=== PATIENT | male | born 1975 | race Caucasian/White ===

== ENCOUNTER 2023-05-27 23:34 | Inpatient (IN) | payer OTHER, SELFPAY ==
[2023-05-27] VITALS (8 sets, daily range): BP systolic 129–145; BP diastolic 62–84; BMI 25.0
[2023-05-27 17:04] LABS: Glucose - Point of Care 120 mg/dl (70-99)
[2023-05-27 17:12] LABS: % Basophils 0.5 % (0-2); % Eosinophils 0.6 % (0-6); % Immature Granulocytes 0.3 % (0-0.5); % Lymphocytes 15.4 % (20.5-51.1); % Monocytes 6.8 % (1.7-9.3); % Neutrophils 76.4 % (42.2-75.2); Absolute Basophils 0.1 10^3/uL (0-0.2); Absolute Eosinophils 0.1 10^3/uL (0-0.7); Absolute Lymphocytes 1.6 10^3/uL (1.2-3.4); Absolute Monocytes 0.7 10^3/uL (0.1-0.6); Absolute Neutrophils 7.9 10^3/uL (1.4-6.5); Hematocrit 38.9 % (39.0-52.0); Hemoglobin 13.9 g/dL (13.0-18.0); Mean Corp Hgb Conc. 35.7 g/dL (33.0-37.0); Mean Corpuscular Hgb 31.8 pg (27.0-31.0); Mean Platelet Volume 10.6 fL (7.4-10.4); Nucleated Red Blood Cells % 0 % (-); Platelet Count 221 10^3/uL (130-400); Red Blood Cell Count 4.37 10^6/uL (4.70-6.10); Red Cell Dist. Width 13.2 % (11.5-14.5); White Blood Cell Count 10.4 10^3/uL (4.8-10.8)
[2023-05-27] MEDS: MORPHINE SULFATE 4 MG IV ×2 (17:15→19:02)
[2023-05-27] MEDS: ZOFRAN 4 MG IV (17:16)
--- NOTE | 2023-05-27 17:16 | ED.GENMED ---
History of Present Illness
General
Chief Complaint: Abdominal Pain
Source: patient
Exam Limitations: none
Time Seen by Provider: 05/27/23 17:14
Nursing documentation reviewed up to this point in time: agreed with
Travel History
Have you had any contact with someone who has COVID-19?: No
Do you have any symptoms of coronavirus? Fever > 100 degrees, chills, cough, shortness of breath, sore throat, loss of taste or smell, muscle aches, or headache?: No
History of Present Illness
History of Present Illness:
48-year-old male presents emergency department complaining of abdominal pain for the past 4 hours, had near syncope in ED when his pain worsened. His pain came on suddenly.
Past History
Past History
ED Past Medical History: Other (Subarachnoid hemorrhage)
ED Past Surgical History: Other (Splenectomy, intracranial ventriculostomy)
Social History
Tobacco: Non-smoker
Alcohol: None
Drug: None
Living: with family
Employment: Employed
Review of Systems
Review of Systems
Allergies reviewed?: Yes
All Other Systems: Not applicable
Constitutional: Reports no symptoms
EENT: Reports no symptoms
Respiratory: Reports no symptoms
Cardiac: Reports no symptoms
ABD/GI: Reports abdominal pain
: Reports no symptoms
Musculoskeletal: Reports no symptoms
Skin: Reports no symptoms
Neurological: Reports no symptoms
Endocrine: Reports no symptoms
Hematologic/Lymphatic: Reports no symptoms
Psychiatric: Reports no symptoms
Phy Exam
Physical Exam
Physical Exam:
Physical Exam
General: no apparent distress, not acutely ill
Neck: supple. no meningeal signs. normal posterior pharynx
Heart: s1/s2 bradycardia, no murmur. equal radial
pulses.
HEENT: Pupils equal round reactive to light, EOMI
Lungs: no acute respiratory distress. clear bilaterally
Abdomen: normal bowel sounds. not tender. no CVAT, midline abdominal scar vertical
Neuro: alert and oriented. no focal neurological deficits cranial nerves II through XII intact
Skin: no rash
Psychiatric: well kept. interactive and cooperative
Extremities: no edema. no calf tenderness. negative homans. good distal pulses
Course
Orders/Labs/Results
Orders:
Orders
05/27/23 16:51
EKG [Electrocardiogram (*1)] Urgent
Reason for Study: Abdominal Pain
EKG- Treatment ONCE
05/27/23 17:01
CBC/With Diff [Complete Blood Count/With Diff] Urgent
CMP [Comprehensive Metabolic Panel] Urgent
Lipase Urgent
05/27/23 17:13
Morphine Sulfate 4 mg .ROUTE .STK-MED ONE
Ondansetron Injectable [Zofran] 4 mg .ROUTE .STK-MED ONE
05/27/23 17:14
Iohexol [Omnipaque] See Protocol PO NOW STA
05/27/23 17:15
CT Abd/pel W Iv And Oral Contr Urgent
Comment:
Reason For Exam: epigastric abdominal pain
Morphine Sulfate 4 mg IV NOW STA
Ondansetron Injectable [Zofran] 4 mg IV NOW STA
05/27/23 18:59
Morphine Sulfate 4 mg IV NOW STA
05/27/23 22:35
Piperacillin/Tazo 4.5 Gram [Zosyn] 4.5 gram in 100 ml IV NOW
Abnormal Lab Results
05/27/23 05/27/23
16:59 17:01
RBC 4.37 L 10^6/uL
(4.70-6.10)
Hct 38.9 L %
(39.0-52.0)
MCH 31.8 H pg
(27.0-31.0)
MPV 10.6 H fL
(7.4-10.4)
Absolute Neuts (auto) 7.9 H 10^3/uL
(1.4-6.5)
Absolute Monos (auto) 0.7 H 10^3/uL
(0.1-0.6)
Neutrophils % 76.4 H %
(42.2-75.2)
Lymphocytes % 15.4 L %
(20.5-51.1)
Sodium 134 L mmol/L
(135-145)
Potassium 3.4 L mmol/L
(3.5-5.1)
Glucose 128 H mg/dl
(70-99)
POC Glucose 120 H mg/dl
(70-99)
05/27/23 17:01
05/27/23 17:01
Vital Signs
Initial and Last Documented VS:
Initial Vital Signs
Temp Pulse Resp BP Pulse Ox
97.6 F 45 18 145/62 98
05/27/23 16:45 05/27/23 16:45 05/27/23 16:45 05/27/23 16:45 05/27/23 16:45
Last Documented Vital Signs
Temp Pulse Resp BP Pulse Ox
97.6 F 60 17 136/80 95
05/27/23 16:45 05/27/23 22:15 05/27/23 22:15 05/27/23 22:00 05/27/23 22:15
MDM/Problems Addressed
Differential Diagnosis Includes:
Cholecystitis, pancreatitis
MDM/Problems Addressed:
48-year-old male with acute cholecystitis, admit to general surgery. Zosyn ordered. Patient also with vasovagal episode, stable.
Acute Exacerbation and/or Progression of Chronic Illness: Previous abdomnial surgery (Splenectomy)
*Radiology
Radiology exam reviewed: radiology read reviewed (CT abdomen pelvis shows acute cholecystitis)
*Pulse Oximetry
Patient hypoxic: no
*EKG
Interpreted by ED Provider?: Yes
EKG Intrepretation Date: 05/27/23
EKG Intrepretation Time: 17:02
Interpretation: abnormal
Comparison EKG: changes noted
Heart Rate: 46
Rate: bradycardiac
Rhythm: sinus
[place]: normal axis
Interval: normal interval
QRS Pattern: normal QRS
Ischemia: no ischemia
*[employer] Operator Interpretation
Rate: normal
Interpretation: normal
Heart Rate: 66
Rhythm: sinus
*Critical Care Note
Total Time (30-74mins, 75-104mins- exclusive of procedures): Not Applicable
Patient Management
Social determinants of health affecting care: Living situation
Discussion with other providers: Weapons Electrical Engineering Officer (General surgery)
Escalation/DeEscalation of care consider admission/obs:
Admit indicated
ED Attending Note
-
Portions of this chart may have been created with voice recognition software.� Occasional wrong word or��sound alike� substitutions may have occurred due to the inherent limitations of voice recognition software.
Discharge Plan
Departure
Patient Disposition: Admit
Date of Disposition: 05/27/23
Time of Disposition: 22:31
Admit to: Telemetry
Presentation/result/management discussed w/ accepting MD/DO: General surgery
Patient with high blood pressure during this ER visit?: Yes
Condition: Good
Discharge Problem:
Acute cholecystitis, Vaso-vagal reaction
Prescriptions:
No Action
fexofenadine [Shannan] 60 mg Tablet
60 mg PO DAILY
Theragen Tablet
1 tab PO DAILY
calcium carbonate [Tums] 200 mg calcium (500 mg) Tablet,Chewable
200 mg PO BIDPRN PRN (Reason: gas)
isotretinoin 30 mg Capsule
30 mg PO Q48H
cholecalciferol (vitamin D3) [Vitamin D3] 25 mcg (1,000 unit) Tablet
25 mcg PO DAILY
omega 3-sun-nhr-fish oil [Fish Oil] 1,000 mg (120 mg-180 mg) Capsule
1 cap PO DAILY
Chelo-Barry Gold 344-1,050-1,000 mg Tablet, Effervescent
1 tab PO DAILYPRN PRN (Reason: runny nose)
peppermint oil Capsule,Delayed Release(Dr/Ec)
1 cap PO DAILY
Referrals:
Tana Su MD [Family Provider] -
Interventions
Interventions:
*Risk Screen - Suicide Last Done: 05/27/23 18:02
*Neglect/Abuse Screening Last Done: 05/27/23 18:02
ED- Fall Risk Assessment Last Done: 05/27/23 18:02
GL-Xrdagi-Odsvtnqdyn Assessment Last Done: 05/27/23 18:02
[2023-05-27 17:26] LABS: ALT (SGPT) 21 U/L (0-50); AST (SGOT) 43 U/L (17-59); Albumin 4.8 g/dl (3.5-5.0); Alkaline Phosphatase 61 U/L (38-126); Blood Urea Nitrogen 14 mg/dl (9-20); Calcium 9.3 mg/dl (8.4-10.2); Carbon Dioxide 24 mmol/L (22-30); Chloride 101 mmol/L (98-107); Estimated Creatinine Clearance 123 ml/min; Glucose 128 mg/dl (70-99); Lipase 82 U/L (23-300); Potassium 3.4 mmol/L (3.5-5.1); Sodium 134 mmol/L (135-145); Total Bilirubin 0.7 mg/dl (0.2-1.3); Total Protein 7.5 g/dl (6.3-8.2); eGFR > 60.00
[2023-05-27] MEDS: OMNIPAQUE 50 ML PO (17:29)
[2023-05-27] MEDS: ZOSYN 100 IV (22:53)
--- NOTE | 2023-05-27 23:15 | HPS.HSE ---
Addendum entered and electronically signed by Gregg Bonilla MD 05/28/23 09:21:
I saw and examined the patient.
The Reporting Lead's note was reviewed and I agree with the note.
Comment: Feeling better this am, no pain. On exam there is mild ttp to RUQ. Offered CCY today vs PO challenge and outpt surgery, he prefers today. OCTOR for lap laurent.
Original Note:
Family Physician
-
Family Physician: Tana Su
Chief Complaint
-
'abdomen pain'
History of Present Illness
48 y/o Patient with the PMH of Subarachnoid hemorrhage, SIBO (Small intestinal bacterial overgrowth) presents to ED with Abdomen pain. Reports he started having a dull pain pointing at the mid epigastric area that got worsened after eating lunch,
had one episode of nausea without vomiting. States pain is staying at the Epigastric area and not radiating to other areas of the stomach, back or shoulder. + Belching, Normal BM's and voiding without difficulties without any blood in urine or
stool. Denies any chest pain or shortness of breath at present. Hx of Splenectomy
Medical History
Past Medical History
Past Medical History: Reports Other
Additional Past Medical History:
Subarachnoid Hemorrhage, SIBO
Past Surgical History: Reports Other
Additional Past Surgical History:
Splenectomy, Intracranial Ventriculostomy
Social History
Tobacco: Non-smoker
Alcohol: Occasional
Drug: None
Living: With Family
Family History
Family History: Not pertinent
Allergies / Home Medications
Allergies reflects when Allergies were last updated in [facility].
Home Medications with original date entered in [facility]
Allergy/Medication List:
Allergies
Allergy/AdvReac Type Severity Reaction Status Date / Time
sulfamethoxazole Allergy Rash Verified 05/27/23 16:49
[From Bactrim]
trimethoprim [From Bactrim] Allergy Rash Verified 05/27/23 16:49
Home Medications
calcium carbonate 200 mg calcium (500 mg) chewable tablet (Tums) 200 mg PO BIDPRN PRN gas 05/27/23
cholecalciferol (vitamin D3) 25 mcg (1,000 unit) tablet (Vitamin D3) 25 mcg PO DAILY 05/27/23
fexofenadine 60 mg tablet 60 mg PO DAILY 05/27/23
isotretinoin 30 mg capsule 30 mg PO Q48H 05/27/23
omega 8-hfr-sbn-fish oil 1,000 mg (120 mg-180 mg) capsule (Fish Oil) 1 cap PO DAILY 05/27/23
peppermint oil 1 cap PO DAILY 05/27/23
pot bicarb 344 mg-sod bicarb 1,050 mg-citric acid 1,000 mg efferv tab (Chelo-Chauncey Gold) 1 tab PO DAILYPRN PRN runny nose 05/27/23
therapeutic multivitamin 1 tab PO DAILY 05/27/23
Review of Systems
-
History Source: Patient
A 12 point ROS was completed and negative except as noted: Yes
Constitutional: Reports No Symptoms
EENT: Reports No Symptoms
Respiratory: Reports No Symptoms
Cardiac: Reports No Symptoms
Abdomen/GI: Reports Abdominal Pain and Nausea
: Reports No Symptoms
Musculoskeletal: Reports No Symptoms
Skin: Reports No Symptoms
Neurological: Reports No Symptoms
Endocrine: Reports No Symptoms
Hematologic/Lymphatic: Reports No Symptoms
Psych: Reports No Symptoms
Physical Exam
Vital Signs
Vital Signs
Temp Pulse Resp BP Pulse Ox
97.6 F 60 17 136/80 95
05/27/23 16:45 05/27/23 22:15 05/27/23 22:15 05/27/23 22:00 05/27/23 22:15
Physical Exam
General: Well Developed, Well Nourished and No Apparent Distress
HEENT: NormoCephalic, Moist mucous membranes and Atraumatic
Respiratory: Clear and Non Labored Respirations
Cardiac: S1/S2 and Bradycardia
Breast: Deferred by me
GI: Soft, Non Distended, Normal Bowel Sounds and Tender (Tender to palpate, + Aldana ); No Organomegaly
Rectal: Deferred by Provider
Genito-urinary: Deferred by me
Musculoskeletal: No Clubbing, No Cyanosis and No Edema
Skin: Warm and Dry
Neuro: Awake, Alert, AO x 3 and Nonfocal/grossly intact
Hematologic/Lymphatic: No Lymphadenopathy
Psych: Calm and Intact Judgment/Insight
Laboratory Results
-
05/27/23 17:01
05/27/23 17:01
Laboratory Results
Total Bilirubin 0.7 mg/dl (0.2-1.3) 05/27/23 17:01
AST 43 U/L (17-59) 05/27/23 17:01
ALT 21 U/L (0-50) 05/27/23 17:01
Alkaline Phosphatase 61 U/L (38-126) 05/27/23 17:01
Lipase 82 U/L (23-300) 05/27/23 17:01
Data Reviewed
-
CT Scan: Report Reviewed by me
Lab Data: Labs Reviewed by me
Impression/Plan
-
48 y/o patient with abdomen pain since noon.
# Abdomen pain likely due to Acute cholecystitis
-CT abd/pelvis: Cholelithiasis. Cannot exclude some mild gallbladder wall thickening/pericholecystic fluid. No findings to suggest biliary tract dilatation.
-WBC:
- Continue IV Zosyn
- Continue IV Zofran
-Continue IV Dilaudid
-NPO
-US of RUQ
-Admit under Dr. Bonilla
# Hypokalemia
-K 3.4
-labs in AM
# Near Syncope induced likely due to pain likely Vasovagal
-EKG: Sinus Morales cardia
-patient states he is active and exercises
Full code
DVT prophylaxis: SCD's
[2023-05-28] VITALS (16 sets, daily range): BP systolic 96–161; BP diastolic 52–96; BMI 22.6
[2023-05-28] MEDS: TORADOL 10 MG IV ×2 (02:13→20:04)
--- NOTE | 2023-05-28 02:22 | TRANSFER ---
Received pt to 2S at 0145 w dx acute cholecystitis. Pt c/o 07/01 to gen abd, medicated appropriately. MD PAUL aware of bradycardia. Pt made aware of diet status, and possibility of going to OR. Bed in lowest position, call lazcano within reach.
[2023-05-28] MEDS: ZOSYN 50 IV ×3 (03:40→22:36)
[2023-05-28 05:51] LABS: ALT (SGPT) 19 U/L (0-50); AST (SGOT) 37 U/L (17-59); Albumin 3.5 g/dl (3.5-5.0); Alkaline Phosphatase 46 U/L (38-126); Blood Urea Nitrogen 10 mg/dl (9-20); Calcium 8.4 mg/dl (8.4-10.2); Carbon Dioxide 28 mmol/L (22-30); Chloride 105 mmol/L (98-107); Estimated Creatinine Clearance 107 ml/min; Glucose 85 mg/dl (70-99); Potassium 3.9 mmol/L (3.5-5.1); Sodium 136 mmol/L (135-145); Total Bilirubin 1.1 mg/dl (0.2-1.3); Total Protein 5.9 g/dl (6.3-8.2); eGFR > 60.00
[2023-05-28] MEDS: TORADOL IV ×2 (08:00→13:38)
--- NOTE | 2023-05-28 11:21 | CM ---
Reviewed the chart notes and spoke with the patient at the bedside. The patient resides with his spouse in a two story home with two steps to enter. The patient report no DME/VN/SNF in the past. [facility] The patient anticipates going to the OR today. CM continues to be available to patient/family and is monitoring medical plan for needs at discharge.
Plan: Discharge to home when medically stable. No needs anticipated.
[2023-05-28] MEDS: ZOSYN IV (15:12)
--- NOTE | 2023-05-28 16:19 | W.IMMPOSTOP ---
Surgical Immed Post Op Note
-
Primary Surgeon: Irene
Pre-op Diagnosis: Acute calculous cholecystitis
Post-op Diagnosis: Same
Procedure Performed: Laparoscopic cholecystectomy
Anesthesia Type: GETA
Specimen / Cultures: Gallbladder
Estimated Blood Loss: 10cc
Complications: None immediate
Operative Findings: Distended gallbladder with filmy omental adhesions, thickened fibrotic wall and wall edema.
--- NOTE | 2023-05-28 16:22 | OR.RPT ---
Operative Report
Operative Report
Primary Surgeon: Irene
Pre-op Diagnosis: Acute calculous cholecystitis
Post-op Diagnosis: Same
Procedure Performed: Laparoscopic cholecystectomy
Anesthesia Type: GETA
Specimen / Cultures: Gallbladder
Estimated Blood Loss: 10cc
Complications: None immediate
Operative Findings: Distended gallbladder with filmy omental adhesions, thickened fibrotic wall and wall edema.
Date of Surgery: 05/28/23
Indications: This 48M developed right upper quadrant/epigastric pain and on workup was found to have acute calculous cholecystitis with normal liver labs and normal sized ducts. Laparoscopic cholecystectomy was elected.
Description of procedure: The patient was placed on the operating table in the supine position. General anesthesia was induced. A time-out was completed verifying correct patient, procedure, site, positioning, and special equipment prior to
beginning this procedure. An orogastric tube was placed. The abdomen was prepped and draped in the usual sterile fashion. A stab incision was made in left upper quadrant and the Veress needle was inserted. Proper position was confirmed by aspiration
and saline meniscus test. The abdomen was insufflated with carbon dioxide to a pressure of 12 mmHg. The patient tolerated insufflation well.
A 5mm optical trocar was then inserted at the umbilicus. The laparoscope was inserted and the abdomen inspected. No injuries from initial trocar placement or Veress needle insertion were noted. Additional trocars were then inserted in the following
locations: a 12-mm trocar in the right epigastrium and two 5-mm trocars along the right costal margin. The abdomen was inspected and no abnormalities were found. The table was placed in the reverse Trendelenburg position with the right side up. The
dome of the gallbladder was grasped with an atraumatic grasper and retracted over the dome of the liver. The infundibulum was also grasped with an atraumatic grasper and retracted toward the right lower quadrant. This maneuver exposed Calot�s
triangle. The peritoneum overlying the gallbladder infundibulum was then incised and the cystic duct and cystic artery identified and circumferentially dissected so that a clear view of the liver was achieved through a window between the cystic duct
an cystic artery. At this time, the only two structures going into the gallbladder were the cystic artery and cystic duct.
The cystic duct and cystic artery were then doubly clipped and divided close to the gallbladder. The gallbladder was then dissected from its peritoneal attachments by electrocautery. Hemostasis was assured and the gallbladder and contained stones
were removed using an endoscopic retrieval bag placed through the subxiphoid port. The gallbladder was passed off the table as a specimen. The gallbladder fossa was copiously irrigated with saline and hemostasis was again assured. There was no
evidence of bleeding from the gallbladder fossa or cystic artery or leakage of the bile from the cystic duct stump. The subxiphoid trocar site was closed at the fascial level laparoscopically with 2-0 PDS. Secondary trocars were removed under direct
vision and noted to be hemostatic. The laparoscope was withdrawn and the umbilical trocar removed. The abdomen was allowed to collapse. The skin was closed with subcuticular sutures of 4-0 monocryl and topical skin adhesive. The orogastric tube was
removed.
The patient tolerated the procedure well and was taken to the postanesthesia care unit in stable condition.
[2023-05-28] MEDS: DEMEROL 12.5 MG IV (16:29)
[2023-05-28] MEDS: ZOFRAN 4 MG IV (16:38)
[2023-05-28] MEDS: DILAUDID 0.5 MG IV ×2 (16:47→17:35)
[2023-05-28] MEDS: COMPAZINE 5 MG IV (17:21)
--- NOTE | 2023-05-28 18:23 | PTCARENOTE ---
Pt arrived to 2 South from PACU s/p lap laurent. Pt drowsy but AAOx3. Pt has 5 lap sites, all MENTAL HEALTH AIDE, C/D/I. Pt on 2L NC satting 99%. Pt states he is still nauseous, improving slowly. Pt re-oriented to call lazcano and room, bed locked and in lowest
position, call lazcano within reach.
[2023-05-28] MEDS: MYLICON 80 MG PO (22:35)
[2023-05-28] MEDS: FLUSH (NSS) 1 FLUSH IV (22:36)
[2023-05-28] MEDS: ROXICODONE 5 MG PO (23:53)
[2023-05-29] MEDS: ROXICODONE 10 MG PO (00:39)
[2023-05-29] MEDS: TYLENOL 650 MG PO (00:40)
[2023-05-29] MEDS: TORADOL IV (01:43)
[2023-05-29] MEDS: TORADOL 10 MG IV ×2 (02:36→10:01)
[2023-05-29 03:20] VITALS: BP 130/72
[2023-05-29] MEDS: ZOSYN 50 IV ×2 (03:44→09:49)
[2023-05-29] MEDS: MYLICON 80 MG PO (03:45)
[2023-05-29 08:00] VITALS: BP 116/65
--- NOTE | 2023-05-29 08:18 | W.PN.SURGUPD ---
Surgical Update
Surgical Update
Patient seen and examined.
Reports significant postoperative bloating/distention and gas cramps with some lack of appetite
no nausea or vomiting.
No flatus
AFVSS
ABD: Distended and tympanitic, mild tenderness surrounding incision sites. Incisions with glue dressings
A/P: POD #1 status post lap laurent for ACC
History of SIBO which may be contributing to postoperative distention as well as signs of ileus
Advised patient to go slow with dietary intake this a.m.
Continue to ambulate and walk halls
Okay to shower
If feeling better later in a.m./afternoon then should be stable for discharge
If continued distention, gas cramps and likely will stay for continued IV fluids and supportive care awaiting GI recovery
[2023-05-29] MEDS: FLUSH (NSS) 3 FLUSH IV (09:50)
[2023-05-29 12:00] VITALS: BP 129/68
[2023-05-29 15:00] VITALS: BP 105/53
--- NOTE | 2023-05-29 15:29 | PTCARENOTE ---
pt verbalized decreased gas discomfort. tolerated breakfast and lunch trays. passing some flatus. pt verbalized wanting to go home. Dr Newton made aware. pt provided discharge instructions w/verbalized understanding.
--- NOTE | 2023-05-29 15:30 | W.DS.TRANS ---
DC Summary - Mask Inspector
-
Discharge Instructions:
Discharge Diagnosis/Procedures Acute calculous cholecystitis
Diet No restrictions
Activity No strenuous activity
Driving Restrictions No driving for 24 hours
Bathing Restrictions OK to Shower
Wound Care Allow skin glue to flake off on its own
Instructions: Cholecystectomy (DC)
Stand-Alone Forms:
Changes to Home Medications: No
Discharge Medications:
DC Medications w/original date entered in [employer]
calcium carbonate 200 mg calcium (500 mg) chewable tablet (Tums) 200 mg PO BIDPRN PRN gas 05/27/23
cholecalciferol (vitamin D3) 25 mcg (1,000 unit) tablet (Vitamin D3) 25 mcg PO DAILY Supplement 05/27/23
fexofenadine 60 mg tablet 60 mg PO DAILY Allergies 05/27/23
isotretinoin 30 mg capsule 30 mg PO Q48H ACNE 05/27/23
omega 9-tbm-hqf-fish oil 1,000 mg (120 mg-180 mg) capsule (Fish Oil) 1 cap PO DAILY High Cholesterol 05/27/23
peppermint oil 1 cap PO DAILY Supplement 05/27/23
pot bicarb 344 mg-sod bicarb 1,050 mg-citric acid 1,000 mg efferv tab (Chelo-[place] Gold) 1 tab PO DAILYPRN PRN runny nose 05/27/23
therapeutic multivitamin 1 tab PO DAILY Supplement 05/27/23
oxycodone 5 mg tablet 5 - 10 mg PO Q4HPRN PRN moderate to severe pain #16 tabs 05/28/23
Home Medication Changes
Pending Results: No
== END 2023-05-29 16:16 | disposition home or self-care (01) | DRG 419 ==
LOC: 2 SOUTH 23:34
PROVIDERS: Emergency Medicine; Nurse Practitioner Gerontology; ADMITTING PHYSICIAN Surgery; EMERGENCY PHYSICIAN Emergency Medicine; FAMILY PHYSICIAN Family Medicine
PROC: 0FT44ZZ Resection of Gallbladder, Percutaneous Endoscopic Approach (ICD-10-PCS; 2023-05-28)
DX: K80.00 Calculus of gallbladder with acute cholecystitis without obstruction (principal); E87.6 Hypokalemia; K82.8 Other specified diseases of gallbladder; K66.0 Peritoneal adhesions (postprocedural) (postinfection)
CPT/HCPCS: 88304; 74177; 76700; 80048; 80053; 82962; 83690; 85025; 93005; 96374; 96375; 96376; 99285; Q9967

== ENCOUNTER → 2023-07-14 16:47 | Outpatient (REF) | payer OTHER, SELFPAY | LOC: HWRAD 16:47 | PROVIDERS: ATTENDING PHYSICIAN Family Medicine | DX: M25.511 Pain in right shoulder (principal); M25.512 Pain in left shoulder | CPT/HCPCS: 73030 ==